=== PATIENT | male | born 1970 | race Caucasian/White ===

== ENCOUNTER 2018-10-02 12:04 | Day surgery (SDC) | payer OTHER, BC ==
[2018-10-02] MEDS ORDERED: LIDOCAINE 2% (SDV) 5 ML INJ (14:47)
[2018-10-02] MEDS ORDERED: PROPOFOL 40 ML (14:47)
== END 2018-10-02 16:10 | disposition home or self-care (01) ==
LOC: GIL 12:04
DX: K64.8 Other hemorrhoids (principal); I10 Essential (primary) hypertension
CPT/HCPCS: 45378